=== PATIENT | male | born 1960 | race African-American/Black ===

== ENCOUNTER 2018-03-31 23:32 | Emergency (ER) | payer MEDICAID ==
[~2018-03-31] VITALS: Ht 170.2 cm; Wt 68.0 kg
[~2018-03-31 23:32] MED LIST: VICODIN
[2018-04-01] MEDS ORDERED: IBUPROFEN 600MG TABLET PO ONE
[2018-04-01 00:03] VITALS: BP 136/87
== END 2018-04-01 00:22 | disposition home or self-care (01) ==
LOC: ER 23:59
DX: G40.909 Epilepsy, unspecified, not intractable, without status epilepticus (principal); R03.0 Elevated blood-pressure reading, without diagnosis of hypertension
CPT/HCPCS: 99283